=== PATIENT | female | born 1950 | race Caucasian/White ===

== ENCOUNTER 2020-08-26 01:08 | Emergency (ER) | payer MEDICARE, OTHER, SELFPAY ==
[2020-08-26] VITALS (13 sets, daily range): BP systolic 123–147; BP diastolic 58–76; PULSE 69–83; RESP 19–28; TEMP 36.5; O2SAT 94–98; BMI 31.9
--- NOTE | 2020-08-26 01:22 | DI.RAD.S_ITS ---
PROCEDURE: XR WRIST LT MIN 3V INDICATIONS: pain TECHNIQUE: 3 views of the wrist were acquired. COMPARISON: None. FINDINGS: Bones: Comminuted impacted distal radius fracture extending to the articular surface with mild displacement. Associated ulnar styloid avulsion. Base of thumb and triscaphe joint degenerative change. No suspicious bony lesions. Soft tissues: No suspicious soft tissue calcifications. IMPRESSION: 1. Impacted, comminuted fracture of the distal radius extending to articular surface. 2. Associated ulnar styloid avulsion. Comment: Final report is concordant with preliminary interpretation provided by [facility]. Dictated by: Hernan Maier M.D. on 08/26/2020 at 7:26 Approved by: Hernan Maier M.D. on 08/26/2020 at 7:27
--- NOTE | 2020-08-26 02:04 | ED.TRAUMA ---
HPI - Trauma General Chief Complaint: Extremity Injury, Upper Stated Complaint: Broke wrist Time Seen by Provider: 08/26/20 01:19 Source: patient and family Mode of arrival: Wheelchair Limitations: no limitations History of Present Illness HPI narrative: 70F Nonsmoker with noncontributory medical history presents with her in the chief complaint of a ground level fall and resultant left wrist injury. She states that she was getting out of bed and at baseline has some trouble with balance on occasion. She states she stumbled and reached out to stabilize herself and ended up falling onto an outstretched wrist. She now has pain with range of motion and improvement with rest. She denies any numbness, tingling or weakness. She denies any head, neck or back pain. She takes no blood thinners. She did have 2 drinks about 8:00 p.m. tonight. she was seen and evaluated by the medics on [place] and had a splint put on MD complaint: fall Onset (ago): minute(s) Loss of Consciousness: no Related Data Previous Rx's Medication Instructions Recorded hydrocodone-acetaminophen 1 tab PO Q4-6H PRN #20 tab 08/26/20 Allergies Allergy/AdvReac Type Severity Reaction Status Date / Time Sulfa (Sulfonamide AdvReac Verified 08/26/20 01:17 Antibiotics) Review of Systems Constitutional Constitutional: Denies chills, Denies fatigue, Denies fever(s), Denies frequent falls, Denies lethargy and Denies weakness Eyes Eyes: Denies change in vision, Denies eye discharge, Denies irritation and Denies loss of vision ENT Ears, Nose, Mouth, and Throat: Denies change in voice, Denies dizziness, Denies neck pain, Denies sore throat and Denies throat swelling Cardiovascular Cardiovascular: Denies chest pain, Denies irregular heart rhythm, Denies lightheadedness, Denies palpitations, Denies dyspnea, Denies dyspnea on exertion and Denies orthopnea Respiratory Respiratory: Denies cough, Denies dyspnea, Denies dyspnea on exertion and Denies wheezing Gastrointestinal Gastrointestinal: Denies abdominal pain, Denies change in bowel habits, Denies diarrhea, Denies nausea and Denies vomiting Musculoskeletal Musculoskeletal: Reports deformity, Reports arthralgias, Reports joint swelling, Denies neck pain and Denies numbness Integumentary/Breasts Skin/Breast: Denies pruritus, Denies erythema, Denies rash and Denies wounds Neurologic Neurologic: Denies behavioral changes, Denies confusion, Denies dizziness, Denies frequent falls, Denies loss of vision, Denies numbness and Denies weakness Psychiatric Psychiatric: Denies anxiety, Denies behavioral changes, Denies confusion, Denies depression, Denies homicidal ideation and Denies suicidal ideation Endocrine Endocrine: Denies fatigue, Denies flushing and Denies palpitations Hematologic/Lymphatic Hematologic/Lymphatic: Denies easy bruising Allergic/Immunologic Allergic/Immunologic: Denies urticaria, Denies throat swelling and Denies wheezing Patient History Social History Smoking Status: Never smoker Smoking Status: Never smoker alcohol intake frequency: 0-2 drinks per day Substance Use Type: does not use Exam Narrative Exam Narrative: GENERAL: [age] year old patient appears stated age. Well-developed patient, in mild distress. tearful HEAD: Atraumatic. Normocephalic. EYES: Pupils equal round and reactive. Extraocular motions intact. No scleral icterus. No injection or drainage. ENT: Nose without bleeding, purulent drainage. Throat without erythema, tonsillar hypertrophy or exudate. Airway patent. NECK: Trachea midline. Non tender CARDIOVASCULAR: Regular rate and rhythm without murmurs, gallops, or rubs. RESPIRATORY: Clear to auscultation. Breath sounds equal bilaterally. No wheezes, rales, or rhonchi. GASTROINTESTINAL: Abdomen soft, non-tender, nondistended. EXTREMITIES: decreased range of motion secondary to pain of left wrist with mild but obvious deformity. This is closed BACK: Nontender without deformity or crepitance. No flank tenderness. NEURO: AOx3. SKIN: No rash or erythema of visible areas Initial Vital Signs Initial Vital Signs: Vital Signs Temperature 97.7 F 08/26/20 01:17 Pulse Rate 78 08/26/20 01:17 Respiratory Rate 24 08/26/20 01:17 Blood Pressure 136/68 08/26/20 01:17 Pulse Oximetry 96 08/26/20 01:17 Procedures Orthopedic Fracture Reduction Fracture #1: Time Out Performed: Yes Side: left Fracture Reduction Location: radius Analgesia: procedural sedation Technique: direct manipulation and traction/counter-traction Post Reduction X-rays Demonstrate: anatomical reduction Post-reduction neuro exam: intact Post-reduction vascular exam: intact Splint Applied: Yes Patient Tolerated Procedure: Well Orthopedic Splinting/Casting Injury #1: Side: left Upper Extremity Injury Location: wrist Upper Extremity Immobilizer: sling/shoulder immobilizer and sugar tong splint Post splinting neuro exam: intact Post splinting vascular exam: intact Placed by: Nursing Procedural Sedation Consent signed: Yes Time out performed: Yes Indication: fracture/dislocation reduction ASA Class: I Mallampati Airway Classification: Class III Preparation: cardiac rehabilitation specialist applied, pulse oximeter, capnometry used, supplemental O2 applied and suction/airway equipment at bedside IV Propofol dose (mg): 80 Intraservice time/total sedation time (min): 10 ED Sedation Level: Moderate (Concious) Patient Tolerated Procedure: Well Complications: none Course Orders Ordered: ED Orders 08/26/20 01:22 XR wrist LT min 3V Stat 08/26/20 02:32 XR wrist LT min 3V Stat Discontinued Medications Hydrocodone Bitart/Acetaminophen (Hydrocodone/Acet 5/325 Prepack) 1 bottle MISC SEEINSTR ONE Stop: 08/26/20 01:46 Last Admin: 08/26/20 02:08 Dose: 1 bottle Documented by: [email or web address] Propofol (Propofol 200 Mg/20 Ml Vial) 95 mg 1 mg/kg (95 mg) IV NOW ONE Stop: 08/26/20 01:46 Last Admin: 08/26/20 02:13 Dose: 95 mg Documented by: [email or web address] Vital Signs Vital signs: Vital Signs - 8 hr 08/26/20 01:17 08/26/20 02:17 08/26/20 02:18 Temperature 97.7 F Pulse Rate 78 72 73 Respiratory Rate 24 22 21 Blood Pressure 136/68 147/66 H Pulse Oximetry 96 97 98 08/26/20 02:20 08/26/20 02:25 08/26/20 02:30 Temperature Pulse Rate 79 81 79 Respiratory Rate 21 21 24 Blood Pressure 141/67 H 141/73 H 145/72 H Pulse Oximetry 98 95 98 08/26/20 02:36 08/26/20 02:40 08/26/20 02:45 Temperature Pulse Rate 77 83 73 Respiratory Rate 28 H 24 20 Blood Pressure 123/58 L 129/61 134/68 Pulse Oximetry 98 95 94 08/26/20 02:50 08/26/20 02:55 08/26/20 03:00 Temperature Pulse Rate 71 69 71 Respiratory Rate 21 19 19 Blood Pressure 144/67 H 135/69 136/76 Pulse Oximetry 96 95 95 08/26/20 03:05 Temperature Pulse Rate 74 Respiratory Rate 20 Blood Pressure 136/76 Pulse Oximetry 95 MDM - Trauma Imaging Data Extremity x-ray #1: Attestation: I personally reviewed and interpreted this imaging study as follows: My Impression: left distal radius fracture with comminution, dorsal angulation and articular involvement Discharge Plan Departure Patient Disposition: Home Clinical Impression: Fracture of wrist Qualifiers: Encounter type: initial encounter Fracture type: closed Laterality: left Qualified Code(s): S62.102A - Fracture of unspecified carpal bone, left wrist, initial encounter for closed fracture Instructions: DI for Distal Radius Fracture Activity Restrictions/Additional Instructions: *You have been diagnosed with [Distal radius fracture ] *What to do: *Please continue to take your regular medications as directed. [x ] New medication prescriptions sent to your pharmacy: [ [facility]] [ ] New medication written as a paper prescription [ ] No new medications given *Please follow up with Dr. Lopez at [facility] in 2-3 days, call for an appointment. Let them know you were seen in the Emergency Department and that we ask that you be seen in follow up. We will electronically transmit a record of today's note *Return to Emergency Department if you should have any new, worsening or concerning symptoms, such as [fever greater than 101 F, shaking chills, worsening pain, persistent vomiting or other bothersome symptoms] Splint Care: Keep splint clean and dry. Elevated affected body part to decrease swelling. OK to use ice pack on the affected body part. Use for 15-20 minutes each time, for 5-6x per day. If you develop worsening pain, numbness, tingling, discoloration of the affected body part, loosen the splint by loosening the RADHA wrap, and either see your doctor for an urgent re-assessment, or return to the Emergency Department. Return to the Emergency Department for any new or worsening symptoms. Prescriptions: New hydrocodone-acetaminophen 5-325 mg tablet 1 tab PO Q4-6H PRN (Reason: pain) Qty: 20 RF: 0 Referrals: Cesar Lopez MD [Physician] -
[2020-08-26] MEDS: HYDROCODONE/ACET 5/325 PREPACK 1 BOTTLE MISC (02:08)
[2020-08-26] MEDS: propofoL 200 MG/20 ML VIAL 95 MG IV (02:13)
--- NOTE | 2020-08-26 02:32 | DI.RAD.S_ITS ---
PROCEDURE: XR WRIST LT 2V INDICATIONS: post reduction and splint TECHNIQUE: 3 views of the wrist were acquired. COMPARISON: [facility], CR, XR WRIST LT MIN 3V, 08/26/2020, 1:27. FINDINGS: Bones: Cast material somewhat obscures bony detail. No significant change in alignment of impacted, comminuted distal radius fracture extending to the articular surface with associated ulnar styloid avulsion. No suspicious bony lesions. Soft tissues: No suspicious soft tissue calcifications. IMPRESSION: No significant change in alignment. Comminuted distal radius fracture extending to articular surface, associated ulnar styloid avulsion. Comment: Final report is concordant with preliminary interpretation provided by [facility]. Dictated by: Hernan Maier M.D. on 08/26/2020 at 7:27 Approved by: Hernan Maier M.D. on 08/26/2020 at 7:29
== END 2020-08-26 03:30 | disposition home or self-care (01) ==
PROVIDERS: Emergency Provider Emergency Medicine
DX: S52.592A Other fractures of lower end of left radius, initial encounter for closed fracture (principal); W06.XXXA Fall from bed, initial encounter
CPT/HCPCS: 25605; 36415; 73110; 99152; 99284; 99285; J2704

== ENCOUNTER → 2020-08-28 13:23 | Outpatient (CLI) | payer MEDICARE, OTHER, SELFPAY ==
--- NOTE | 2020-08-28 | DI.CT.S_ITS ---
PROCEDURE: CT UE LT WO CON INDICATIONS: Colles' fracture of left radius, initial encounter TECHNIQUE: Noncontrast 1 mm axial sections acquired through the carpal bones, with coronal and sagittal reformats. COMPARISON: [facility], CR, XR WRIST LT 2V, 08/26/2020, 2:34. FINDINGS: Image quality: Limited by cast artifact. Bones: Comminuted intra-articular fracture of the distal radius is present, as seen by plain film. There is mild posterior angulation of the distal fragment. Soft tissues: Grossly unremarkable IMPRESSION: Distal radial fracture. Dictated by: Sarah Larkin M.D. on 08/28/2020 at 14:58 Approved by: Sarah Larkin M.D. on 08/28/2020 at 14:59
== END ==
PROVIDERS: Referring Provider Orthopaedic Surgery; Visit Provider Orthopaedic Surgery
DX: S52.532A Colles' fracture of left radius, initial encounter for closed fracture (principal); X58.XXXA Exposure to other specified factors, initial encounter
CPT/HCPCS: 73200

== ENCOUNTER 2020-09-25 08:42 | Emergency (ER) | payer MEDICARE, OTHER, SELFPAY ==
--- NOTE | 2020-09-25 09:07 | ED.ABDPAIN ---
HPI - Abdominal Pain General Chief Complaint: Abdominal Pain Stated Complaint: ACUTE RT LOWER ABDOMINAL PAIN Time Seen by Provider: 09/25/20 08:45 History of Present Illness HPI narrative: 70-year-old female nonsmoker with noncontributory medical history presents with her and a chief complaint of right lower quadrant pain that has been present, if not worsening since last night. She states it came on rather suddenly home at 2 or 3 in the afternoon and in her right lower quadrant. It is worse when she moves and improves with rest. She denies any change in appetite and has no nausea, vomiting or diarrhea. She denies constipation. She denies any urinary complaints such as dysuria, frequency or urgency. She has had no fever or chills. She had coffee this morning at about 6 or 7 but has been NPO to solid since last night. She denies any history of the same Related Data Previous Rx's Medication Instructions Recorded hydrocodone 5 mg-acetaminophen 325 1 tab PO Q4-6H PRN #20 tab 08/26/20 mg tablet ondansetron 4 mg disintegrating 4 mg PO TID-QID PRN #10 tab 09/25/20 tablet Allergies Allergy/AdvReac Type Severity Reaction Status Date / Time Sulfa (Sulfonamide AdvReac Verified 08/26/20 01:17 Antibiotics) Review of Systems Review of Systems Narrative: GENERAL: Denies chills, fatigue, malaise, fever, sweats. HEENT: Denies sinus pain, ear pain, sore throat, difficulty swallowing, dizziness. RESPIRATORY: Denies dyspnea, cough, wheezing, hemoptysis, sputum. CARDIOVASCULAR: Denies chest pain, palpitations, orthopnea, edema, GASTROINTESTINAL: See HPI : Denies dysuria, frequency, incontinence, hematuria, urinary retention. MUSCULOSKELETAL: denies weakness, joint pain, or bony pain SKIN: Denies rash, skin lesions, or other NEUROLOGIC: Denies weakness, headache, numbness, change in speech, confusion, seizures, incoordination. PSYCHIATRIC: No concerning psychosocial issues. 12 point review of systems is negative except for those stated above Patient History Social History Smoking Status: Never smoker Smoking Status: Never smoker alcohol intake frequency: 0-2 drinks per day Substance Use Type: does not use Exam Narrative Exam Narrative: GENERAL: [70] year old patient appears stated age. Well-developed patient, in mild distress. HEAD: Atraumatic. Normocephalic. EYES: Pupils equal round and reactive. Extraocular motions intact. No scleral icterus. No injection or drainage. ENT: Nose without bleeding, purulent drainage. Throat without erythema, tonsillar hypertrophy or exudate. Airway patent. NECK: Trachea midline. Non tender CARDIOVASCULAR: Regular rate and rhythm without murmurs, gallops, or rubs. RESPIRATORY: Clear to auscultation. Breath sounds equal bilaterally. No wheezes, rales, or rhonchi. GASTROINTESTINAL: Abdomen soft, tenderness in the right lower quadrant with localized peritonitis, bowel sounds present in all 4 quadrants. Negative Rovsing's. Negative heel tap, mild worsening of pain with psoas EXTREMITIES: No edema or joint tenderness. BACK: Nontender without deformity or crepitance. No flank tenderness. NEURO: AOx3. SKIN: No rash or erythema of visible areas Initial Vital Signs Initial Vital Signs: Vital Signs Temperature 98.0 F 09/25/20 09:11 Pulse Rate 88 09/25/20 09:11 Respiratory Rate 18 09/25/20 09:11 Blood Pressure 184/90 H 09/25/20 09:11 Pulse Oximetry 98 09/25/20 09:11 Course Orders Ordered: Discontinued Medications Sodium Chloride (Normal Saline 0.9%) 1,000 mls @ 150 mls/hr IV CONT WENDY Last Infusion: 09/25/20 15:19 Dose: 0 mls/hr Documented by: Admin: 09/25/20 11:24 Dose: 150 mls/hr Documented by: BTONER Vital Signs Vital signs: Vital Signs - 8 hr 09/25/20 09:11 09/25/20 11:47 Temperature 98.0 F Pulse Rate 88 83 Respiratory Rate 18 Blood Pressure 184/90 H 199/89 H Pulse Oximetry 98 98 MDM - Abdominal Pain Lab Data Result diagrams: 09/25/20 10:30 09/25/20 10:30 Labs: Lab Results 09/25/20 09/25/20 Range/Units 10:30 10:30 WBC 4.2 L (4.5-11.0) X10^3/uL RBC 4.32 (4.0-5.2) X10^6/uL Hgb 13.0 (12.0-16.0) g/dL Hct 39.2 (36-46) % MCV 90.7 (80-100) fL MCH 30.0 (26-34) PG MCHC 33.1 (30-36) % RDW 13.4 (11.6-14.8) % Plt Count 160 (150-400) X10^3/uL Neut % (Auto) 46.7 L (50-75) % Lymph % (Auto) 39.2 (25-40) % [place] % (Auto) 9.3 (3-14) % Eos % (Auto) 4.0 (2-4) % Baso % (Auto) 0.8 (0-2) % Neut # (Auto) 2000 (0215-7600) /uL Lymph # (Auto) 1600 (9623-2971) /uL [place] # (Auto) 400 (0-900) /uL Eos # (Auto) 200 (0-450) /uL Baso # (Auto) 0 (0-100) /uL Sodium 137 (137-145) mmol/L Potassium 4.7 (3.4-5.1) mmol/L Chloride 105 (98-107) mmol/L Carbon Dioxide 28 (22-32) mmol/L BUN 10 (7-17) mg/dL Creatinine 0.64 (0.52-1.04) mg/dL Estimated GFR > 60.0 (>60) mL/min BUN/Creatinine Ratio 15.6 (6-22) Glucose 115 H (80-110) mg/dL Calcium 9.4 (8.4-10.2) mg/dL Total Bilirubin 0.4 (0.2-1.3) mg/dL AST 68 H (14-36) IU/L ALT 92 H (<35) IU/L Alkaline Phosphatase 85 (38-126) U/L Total Protein 6.3 (6.3-8.2) g/dL Albumin 3.8 (3.5-5.0) g/dL Globulin 2.5 (1.7-4.1) g/dL Albumin/Globulin Ratio 1.5 (1.0-2.8) Lipase 60 (23-300) U/L Point of care testing: Urine Dip Bedside Urine Glucose Negative Bedside Urine Bilirubin - Negative Bedside Urine Ketone - Negative Urine Specific [place] 1.020 Bedside Urine Occult Blood - Negative Bedside Urine pH 6.0 Bedside Urine Protein - Negative Bedside Urine Urobilinogen - Negative Bedside Urine Nitrite - Negative Bedside Urine Leukocytes - Negative Esterase MDM Narrative Medical decision making narrative: Multiple etiologies for patient's symptoms considered including: [Appendicitis versus ovarian problem versus kidney stone versus bowel obstruction versus other] Patient's symptoms improved over duration of stay with above-stated therapies. Pain is well controlled, tolerating orals Findings and discharge diagnosis discussed with patient/family followed by verbalization of understanding Return precautions discussed with patient/family whom verbalize understanding. Discharge Plan Departure Patient Disposition: Home Clinical Impression: Abdominal pain, acute, right lower quadrant Instructions: DI for Abdominal Pain-Adult Activity Restrictions/Additional Instructions: *You have been diagnosed with [right lower quadrant pain without evidence of appendicitis, kidney stone, ovarian problem or other diagnosis requiring immediate intervention. As we discussed this could be early appendicitis and close follow-up in the next 12-24 hours is very important.] *What to do: *Please continue to take your regular medications as directed. [x ] New medication prescriptions sent to your pharmacy: [[facility]] [ ] New medication written as a paper prescription [ ] No new medications given *Please consume only clear liquids for the next 24 hours. *Return to Emergency Department if you should have any new, worsening or concerning symptoms, such as [fever greater than 101 F, shaking chills, worsening pain, persistent vomiting or other bothersome symptoms] Prescriptions: New ondansetron 4 mg tablet,disintegrating 4 mg PO TID-QID PRN (Reason: nausea and vomiting) Qty: 10 RF: 0 No Action hydrocodone-acetaminophen 5-325 mg tablet 1 tab PO Q4-6H PRN (Reason: pain) Qty: 20 RF: 0 Referrals: Tiera Kelley MD [Primary Care Provider] -
[2020-09-25 09:11] VITALS: BP 184/90; PULSE 88; RESP 18; TEMP 36.7; O2SAT 98; BMI 33.4
[2020-09-25 10:42] LABS: Add Manual Diff / Slide Review NO; Basophils Absolute Auto 0 /uL (0-100); Basophils Percent Auto 0.8 % (0-2); Eosinophils Absolute Auto 200 /uL (0-450); Hematocrit 39.2 % (36-46); Lymphocytes Absolute Auto 1600 /uL (1100-4500); Lymphocytes Percent Auto 39.2 % (25-40); Mean Corpuscular HGB Conc 33.1 % (30-36); Mean Corpuscular Volume 90.7 fL (80-100); Monocytes Absolute Auto 400 /uL (0-900); Monocytes Percent Auto 9.3 % (3-14); Neutrophils Absolute Auto 2000 /uL (1500-7000); Neutrophils Percent Auto 46.7 % (50-75); Platelet Count 160 X10^3/uL (150-400); Red Blood Cell Count 4.32 X10^6/uL (4.0-5.2); Red Cell Distribution Width 13.4 % (11.6-14.8); White Blood Cell Count 4.2 X10^3/uL (4.5-11.0)
[2020-09-25 10:53] LABS: Alanine Aminotransferase 92 IU/L (<35); Albumin 3.8 g/dL (3.5-5.0); Albumin Globulin Ratio 1.5 (1.0-2.8); Alkaline Phosphatase 85 U/L (38-126); Aspartate Aminotransferase 68 IU/L (14-36); BUN Creatinine Ratio 15.6 (6-22); Bilirubin Total 0.4 mg/dL (0.2-1.3); Blood Urea Nitrogen 10 mg/dL (7-17); Calcium 9.4 mg/dL (8.4-10.2); Carbon Dioxide 28 mmol/L (22-32); Chloride 105 mmol/L (98-107); Estimated Glomerular Filt Rate > 60.0 mL/min (>60); Globulin 2.5 g/dL (1.7-4.1); Glucose 115 mg/dL (80-110); HEMOLYSIS < 15 (0-50); Lipase 60 U/L (23-300); Potassium 4.7 mmol/L (3.4-5.1); Sodium 137 mmol/L (137-145); Total Protein 6.3 g/dL (6.3-8.2)
[2020-09-25] MEDS: SODIUM CHLORIDE 0.9% 1,000 ML 150 ML IV (11:24)
--- NOTE | 2020-09-25 11:39 | DI.CT.S_ITS ---
PROCEDURE: CT ABDOMEN PELVIS W CON INDICATIONS: severe RLQ pain TECHNIQUE: After the administration of intravenous contrast, axial sections acquired from the lung bases to the pubic symphysis. Coronal and sagittal reformats were performed. For radiation dose reduction, the following was used: automated exposure control, adjustment of mA and/or kV according to patient size. COMPARISON: None. FINDINGS: Image quality: Excellent. Lung bases: Unremarkable. There is a small hiatal hernia. Heart: Heart size is normal. There is mild coronary artery calcification. ABDOMEN: Liver: Liver is normal in size. Severe hepatic steatosis. Gallbladder: Unremarkable. Biliary ducts: Unremarkable. Pancreas: Unremarkable. Spleen: Unremarkable. Adrenal Glands: Unremarkable. Kidneys and Ureters: Unremarkable. Stomach and Bowel: Stomach, small bowel loops, and colon are normal in caliber. Appendix is mildly enlarged measuring 8 mm. There is no appendiceal stranding. No periappendiceal fluid collection. Cecum and terminal ileum are grossly normal. There are scattered colonic diverticula. No CT findings to suggest acute diverticulitis. Peritoneum: No abnormal intraperitoneal fluid. No free air. Ventral Wall: No hernias. Abdominal Nodes: No retroperitoneal or mesenteric adenopathy by size criteria. Vessels: Aorta and inferior vena cava are normal in size. PELVIS: Pelvic Organs: Uterus is absent. Ovaries are grossly normal. No free fluid in pelvis. Bladder: Unremarkable. Pelvic Nodes: No enlarged lymph nodes. Miscellaneous: No hernias are seen. Bones: Degenerative changes are noted in lumbar spine. Mild anterior wedge deformity of T12. IMPRESSION: 1. The appendix appears slightly enlarged without periappendiceal stranding. Early acute appendicitis cannot be excluded. 2. Diverticulosis without diverticulitis. 3. Hepatic steatosis. The result was discussed with Dr. Balderas. Dictated by: Fox Mcallister M.D. on 09/25/2020 at 12:28 Approved by: Fox Mcallister M.D. on 09/25/2020 at 12:39
[2020-09-25 11:47] VITALS: BP 199/89; PULSE 83; O2SAT 98
--- NOTE | 2020-09-25 13:34 | DI.US.S_ITS ---
PROCEDURE: US PELVIC COMPLETE INDICATIONS: severe RLQ pain, ovary vs. early appendicitis TECHNIQUE: Real-time scanning was performed of the pelvic organs, with image documentation. Additional endovaginal scanning was necessary due to incomplete visualization of the adnexal and endometrial structures by transabdominal scanning. COMPARISON: None. FINDINGS: Uterus: Surgically absent Ovaries: Neither of the ovaries are sonographically identified. Technically difficult examination due to body habitus. No gross adnexal mass is seen. Other: No pathologic free abdominal or pelvic fluid. The appendix is not sonographically visualized. IMPRESSION: Ovaries not sonographically visualized. Status post hysterectomy. Dictated by: Mesfin Grijalva M.D. on 09/25/2020 at 15:58 Approved by: Mesfin Grijalva M.D. on 09/25/2020 at 15:59
== END 2020-09-25 15:20 | disposition home or self-care (01) ==
PROVIDERS: Emergency Provider Emergency Medicine; PCP Family Medicine
DX: R10.31 Right lower quadrant pain (principal)
CPT/HCPCS: 36415; 74177; 76830; 76856; 80053; 81003; 83690; 85025; 96360; 96361; 99284

== ENCOUNTER → 2021-04-08 09:33 | Outpatient (CLI) | payer MEDICARE, OTHER, SELFPAY ==
[2021-04-08 11:40] LABS: COVID19 -Nasal RAPID Negative (Negative)
== END ==
PROVIDERS: PCP Family Medicine; Visit Provider Family Medicine Sleep Medicine
DX: Z20.822 Contact with and (suspected) exposure to COVID-19 (principal)
CPT/HCPCS: 87635; C9803

== ENCOUNTER 2021-04-09 06:42 | Day surgery (SDC) | payer MEDICARE, OTHER, SELFPAY ==
[2021-04-09] MEDS: PROPARACAINE 0.5% OPHTH SOL 2 DROPS EYE-OP (07:16)
[2021-04-09] MEDS: CATARACT EYE COMPOUND (10 DROPS/SYRINGE) 3 DROPS EYE-OP (07:17)
[2021-04-09 07:18] VITALS: BP 153/84; PULSE 78; RESP 18; TEMP 36.6; O2SAT 96; BMI 36.0
--- NOTE | 2021-04-09 08:46 | PM.PREOP ---
Pre-operative Note Interval Note History & Physical reviewed/Exam performed by Physician: Yes Changes to H&P: No Addendum Addendum Note: There are no non surgical alternatives to cataract surgery. Deterioration of the patient's condition is expected. Delay may result in more complex future surgery.
--- NOTE | 2021-04-09 08:48 | P.OP_ITS ---
Operative Date/Time/Diagnoses Pre-op diagnosis: Nuclear cataract right eye Procedure & Clinicians Procedure: Cataract Surgery Same procedure as scheduled: Yes Surgeon: Cesar Tovar Anesthesia Type: MAC +/- and Sedation Operative Notes Procedure in detail: Patient brought to the operating suite. Tetracaine drops placed in the right eye. Marking instrument was used to cesario the vertical and horizontal meridians. Patient was prepped and draped in sterile manner. Wire lid speculum was placed in the eye. Marking instrument was used to cesario the 40 degree meridian. Betadine drops were placed on the eye. This was irrigated. Lidocaine jelly was placed on the eye. A paracentesis port was created with a side-port blade. 0.1 mL 1% preservative free lidocaine was injected into the anterior chamber. The anterior chamber was deepened with viscoelastic. 2.6 mm keratome was used to create a temporal clear corneal incision. Cystotome and Utrata forceps were used to create continuous tear capsulorrhexis. Balanced salt solution was used to hydro dissect the nucleus. The phacoemulsification handpiece was inserted and the nucleus was removed using the stop and chop technique. The irrigation aspiration handpiece was inserted and the remaining cortex was removed. Anterior chamber was deepened with viscoelastic. An Walker [id number] intraocular lens with a power of 20.0 was injected into the capsular bag. Irrigation aspiration handpiece was inserted and the remaining viscoelastic was removed. The lens was rotated to the 40 degree meridian. Incision was hydrated with balanced salt solution and found to be leak free with pressure with Weck-Nina sponges. 0.1 mL Vigamox injected anterior chamber. 0.3 mL Kenalog 10 mg was injected subconju nctivally. Lid speculum was removed. The patient left the operating room in excellent condition. Complications: none Post-operative Condition: stable Disposition: same day surgery
[2021-04-09] MEDS: TRIAMCINOLONE 50 MG/5 ML VIAL INJ (09:01)
[2021-04-09] MEDS: MOXIFLOXACIN INJ 4 MG/0.8 ML VIAL 0.5 MG EYE-OP (09:01)
[2021-04-09] MEDS: PHENYLEPHRINE/LIDOCAINE VIAL (OR) 0.2 ML EYE-OP (09:01)
[2021-04-09] MEDS: HYALURONATE SODIUM 30 MG-10 MG/ML SYRINGES 1 BOX INTRAOCULA (09:01)
[2021-04-09] MEDS: LIDOCAINE 2% (GLYDO) 6 ML GEL TOP (09:02)
[2021-04-09] MEDS: TETRACAINE 0.5% OPHTH DROPS 4 ML 2 DROPS EYE-OP (09:02)
[2021-04-09] MEDS: BALANCED SALT IRRIG SOLN NO.2 500 ML, EPINEPHrine 1 MG IRR (09:02)
[2021-04-09 09:17] VITALS: BP 122/72; PULSE 72; RESP 16; TEMP 36.6; O2SAT 98
== END 2021-04-09 09:40 | disposition home or self-care (01) ==
PROVIDERS: PCP Family Medicine; Referring Provider Ophthalmology; Visit Provider Ophthalmology
PROC: (CPT 66984; principal; 2021-04-09 08:45)
DX: H25.11 Age-related nuclear cataract, right eye (principal); F41.9 Anxiety disorder, unspecified
CPT/HCPCS: 66984; J0171; J2250; J3301; V2787

== ENCOUNTER → 2021-04-22 14:32 | Outpatient (CLI) | payer MEDICARE, OTHER, SELFPAY ==
[2021-04-22 16:07] LABS: COVID19 -Nasal RAPID Negative (Negative)
== END ==
PROVIDERS: PCP Family Medicine; Visit Provider Family Medicine Sleep Medicine
DX: Z20.822 Contact with and (suspected) exposure to COVID-19 (principal)
CPT/HCPCS: 87635; C9803

== ENCOUNTER 2021-04-23 06:22 | Day surgery (SDC) | payer MEDICARE, OTHER, SELFPAY ==
[2021-04-23 07:13] VITALS: BP 156/93; PULSE 82; RESP 16; TEMP 36.2; O2SAT 100
[2021-04-23 07:15] VITALS: BMI 34.9
[2021-04-23] MEDS: PROPARACAINE 0.5% OPHTH SOL 2 DROPS EYE-OP (07:35)
[2021-04-23] MEDS: CATARACT EYE COMPOUND (10 DROPS/SYRINGE) 3 DROPS EYE-OP (07:50)
--- NOTE | 2021-04-23 07:53 | SUR.PREOP ---
Dr Tovar here and inserted 1st eye drops -delay with pharmacy eye meds this am.
--- NOTE | 2021-04-23 08:40 | P.OP_ITS ---
Operative Date/Time/Diagnoses Pre-op diagnosis: Nuclear Cataract Left eye Post-op diagnosis: same Procedure & Clinicians Same procedure as scheduled: Yes Surgeon: Cesar Tovar Anesthesia Type: MAC +/- and Sedation Operative Notes Procedure in detail: Patient brought to the operating suite. Tetracaine drops placed in the left eye. Marking instrument was used to cesario the vertical and horizontal meridians. Patient was prepped and draped in sterile manner. Wire lid speculum was placed in the eye. Betadine drops were placed on the eye. This was irrigated. Lid ocaine jelly was placed on the eye. A paracentesis port was created with a side- port blade. 0.1 mL 1% preservative free lidocaine was injected into the anterior chamber. The anterior chamber was deepened with viscoelastic. 2.6 mm keratome was used to create a temporal clear corneal incision. Cystotome and Utrata forceps were used to create continuous tear capsulorrhexis. Balanced salt solution was used to hydro dissect the nucleus. The phacoemulsification handpiece was inserted and the nucleus was removed using the stop and chop technique. The irrigation aspiration handpiece was inserted and the remaining cortex was removed. Anterior chamber was deepened with viscoelastic. An Walker [id number] intraocular lens with a power of 19.0 was injected into the capsular bag. Irrigation aspiration handpiece was inserted and the remaining viscoelastic was removed. The lens was rotated to the 90 degree meridian. Incision was hydrated with balanced salt solution and found to be leak free with pressure with Weck- Nina sponges. 0.1 mL Vigamox injected anterior chamber. 0.3 mL Kenalog 10 mg was injected subconjunctivally. Lid speculum was removed. The patient left the operating room in excellent condition. Complications: none Post-operative Condition: stable Disposition: same day surgery
--- NOTE | 2021-04-23 08:40 | PM.PREOP ---
Pre-operative Note Interval Note History & Physical reviewed/Exam performed by Physician: Yes Changes to H&P: No
[2021-04-23] MEDS: HYALURONATE SODIUM 30 MG-10 MG/ML SYRINGES 1 BOX INTRAOCULA (08:49)
[2021-04-23] MEDS: MOXIFLOXACIN INJ 4 MG/0.8 ML VIAL 0.5 MG EYE-OP (08:49)
[2021-04-23] MEDS: LIDOCAINE 2% (GLYDO) 6 ML GEL TOP (08:50)
[2021-04-23] MEDS: TRIAMCINOLONE 50 MG/5 ML VIAL INJ (08:50)
[2021-04-23] MEDS: BALANCED SALT IRRIG SOLN NO.2 500 ML, EPINEPHrine 1 MG IRR (08:50)
[2021-04-23] MEDS: PHENYLEPHRINE/LIDOCAINE VIAL (OR) 0.2 ML EYE-OP (08:50)
[2021-04-23] MEDS: TETRACAINE 0.5% OPHTH DROPS 4 ML 2 DROPS EYE-OP (08:50)
[2021-04-23 09:11] VITALS: BP 151/86; PULSE 70; RESP 18; TEMP 36.6; O2SAT 100
--- NOTE | 2021-04-23 09:26 | SUR.PHASEII ---
preop-= prior rt eye surgery-still with some redness-Dr Tovar seen on preop visit and acknowledged.
== END 2021-04-23 09:25 | disposition home or self-care (01) ==
PROVIDERS: PCP Family Medicine; Referring Provider Ophthalmology; Visit Provider Ophthalmology
PROC: (CPT 66984; principal; 2021-04-23 08:45)
DX: H25.12 Age-related nuclear cataract, left eye (principal); F41.9 Anxiety disorder, unspecified
CPT/HCPCS: 66984; J0171; J2250; J3301; V2787

== ENCOUNTER → 2022-09-11 09:30 | Outpatient (CLI) | payer MEDICARE, SELFPAY ==
[2022-09-11 12:26] LABS: Alanine Aminotransferase 43 IU/L (<35); Albumin Globulin Ratio 1.8 (1.0-2.8); Alkaline Phosphatase 64 U/L (38-126); Aspartate Aminotransferase 34 IU/L (14-36); BUN Creatinine Ratio 13.7 (6-22); Bilirubin Total 0.4 mg/dL (0.2-1.3); Blood Urea Nitrogen 10 mg/dL (7-17); Calcium 9.8 mg/dL (8.4-10.2); Carbon Dioxide 29 mmol/L (22-32); Chloride 100 mmol/L (98-107); Estimated Glomerular Filt Rate > 60 mL/min (>60); Globulin 2.2 g/dL (1.7-4.1); Glucose 107 mg/dL (80-110); HEMOLYSIS < 15 (0-50); Potassium 4.9 mmol/L (3.4-5.1); Sodium 136 mmol/L (137-145); Total Protein 6.2 g/dL (6.3-8.2)
== END ==
PROVIDERS: PCP Student in an Organized Health Care Education/Training Program; Referring Provider Student in an Organized Health Care Education/Training Program; Visit Provider Student in an Organized Health Care Education/Training Program
DX: R79.89 Other specified abnormal findings of blood chemistry (principal)
CPT/HCPCS: 36415; 80053

== ENCOUNTER → 2023-07-25 17:01 | Outpatient (CLI) | payer MEDICARE, SELFPAY | PROVIDERS: PCP Student in an Organized Health Care Education/Training Program; Visit Provider Registered Nurse | DX: R31.9 Hematuria, unspecified (principal) | CPT/HCPCS: 87086 ==

== ENCOUNTER 2023-07-25 17:22 | Emergency (ER) | payer MEDICARE, SELFPAY ==
[2023-07-25 17:28] VITALS: BP 174/82; PULSE 100; RESP 16; TEMP 36.8; O2SAT 100; BMI 32.3
[2023-07-25 18:17] VITALS: PULSE 93; O2SAT 96
--- NOTE | 2023-07-25 18:31 | ED.FEMALEGU ---
HPI - Female Genitourinary General Chief complaint: Urogenital-Female Stated complaint: sent by [facility]/pelvic pain/lt low back pain Time Seen by Provider: 07/25/23 18:19 Source: patient Mode of arrival: Ambulatory Limitations: no limitations History of Present Illness HPI Narrative: This is a 72-year-old with history of dyslipidemia, urinary issues following with urology who was started on Gemtaza a in the last couple of months. She had been doing well but was noted to have some mild urinary retention when she saw her urologist 1 or 2 weeks ago. In the past week she has had increased lower abdominal pain bilaterally and a little bit of left flank pain. She has had increasing sensation of urinary retention which became quite severe couple days ago she was able to finally urinate. She stopped the medication on Thursday. She feels like the retention has been slowly improving but is still present. She denies dysuria. She has not had any fevers but has felt warm. Denies any nausea or vomiting, no black or bloody stools but has had diarrhea which is new. Patient states she has had a prior hysterectomy but no other abdominal surgeries. Home medications are a statin, phentermine once weekly and Gemtaza. Patient was told by her physician to go into the walk-in clinic. She had a urine sample that was done does not show any signs of infection but patient states her urine does not usually show any changes on the urinalysis but we will on culture. She states she is typically positive for Proteus mirabilis. She states she has an allergy to sulfa. Former smoker, drinks 2 alcoholic drinks daily, no recreational drugs. Dr. Kaleigh Lowe is her primary care provider. She is following with Urology in [place]. Related Data Home Medications Medication Instructions Recorded Confirmed rosuvastatin 20 mg tablet 20 mg PO DAILY 04/09/21 07/25/23 estradiol 0.01% (0.1 mg/gram) vaginal 07/25/23 07/25/23 vaginal cream fluorouracil 5 % topical cream applic topical BID PRN 07/25/23 07/25/23 phentermine 37.5 mg tablet 37.5 mg PO QAM 07/25/23 07/25/23 phentermine 8 mg tablet (Lomaira) mg PO 07/25/23 07/25/23 vibegron 75 mg tablet (Gemtesa) 75 mg PO DAILY 07/25/23 07/25/23 Allergies Allergy/AdvReac Type Severity Reaction Status Date / Time Sulfa (Sulfonamide AdvReac Unknown Verified 07/25/23 16:57 Antibiotics) Review of Systems Review of Systems ROS Unobtainable: All systems reviewed & are unremarkable except as noted in HPI and below Patient History alcohol intake frequency: 0-2 drinks per day Substance Use Type: does not use Exam Narrative Exam Narrative: GENERAL: Alert and oriented x three, well-appearing female in mild distress HEENT: Head normocephalic, atraumatic, EOMI, pupils reactive, face symmetric, moist mucous membranes NECK: Supple, full range of motion CARDIOVASCULAR: Regular rate and rhythm without murmurs, rubs or gallops. RESPIRATORY: Breath sounds equal bilaterally, no wheezes rales or rhonchi. ABDOMEN: Soft, nontender examination. Nondistended. Normoactive bowel sounds all 4 quadrants. No guarding or rebound, rigidity, no mass : No CVA tenderness EXTREMITIES: Normal range of motion, no clubbing or edema. Neurovascularly intact NEUROLOGICAL: Cranial nerves II through XII grossly intact. Moving all extremities SKIN: Warm, dry, no petechiae, no rashes or lesions. Initial Vital Signs Initial Vital Signs: Vital Signs Temperature 98.2 F 07/25/23 17:28 Pulse Rate 100 H 07/25/23 17:28 Respiratory Rate 16 07/25/23 17:28 Blood Pressure 174/82 H 07/25/23 17:28 Pulse Oximetry 100 07/25/23 17:28 Oxygen Delivery Method Room Air 07/25/23 17:28 Course Orders Ordered: ED Orders 07/25/23 18:44 Urine Culture Stat Vital Signs Vital signs: Vital Signs - 8 hr 07/25/23 17:28 Temperature 98.2 F Pulse Rate 100 H Respiratory Rate 16 Blood Pressure 174/82 H Pulse Oximetry 100 Oxygen Delivery Method Room Air MDM - Female Genitourinary MDM Narrative Medical decision making narrative: Patient had bladder scan than department which showed 225 mL. She then urinated, postvoid bladder scan shows 10-30mL Urine is negative for nitrates, leuks. Patient states it typically is so was sent for culture. She states her symptoms are different than prior UTI she usually has dysuria. Discussed with patient I think a lot of her symptoms are related to her medication. She feels comfortable continuing to hold her medication and following up with her urologist she has already been in touch with them through [employer] with plan to see them hopefully this upcoming week. Discussed return precautions all questions answered. Discharge Plan Departure Patient Disposition: Home Clinical Impression: Medication reaction Activity Restrictions/Additional Instructions: Your symptoms do seem very consistent with reaction to your Gemtasa. Please continue to hold your medication and talk with your urologist about what other options would be good for you. You do have a urine culture pending. Typically takes 48-72 hours to result if positive you should be contacted. If you develop sensation of urinary retention fevers new abdominal back or flank pain, vomiting, worsening diarrhea, black or bloody stools or any other new or concerning changes please return. Prescriptions: No Action Gemtesa 75 mg tablet 75 mg PO DAILY estradiol 0.01 % (0.1 mg/gram) cream vaginal phentermine 37.5 mg tablet 37.5 mg PO QAM Lomaira 8 mg tablet PO fluorouracil 5 % cream topical BID PRN rosuvastatin 20 mg tablet 20 mg PO DAILY Patient Comments: TAKE ONE TABLET BY MOUTH ONE TIME DAILY Referrals: Kaleigh Lowe PA-C [Primary Care Provider] - Stand Alone Forms: Patient Portal/API
[2023-07-25 19:00] VITALS: BP 174/82; PULSE 96; O2SAT 100
== END 2023-07-25 19:00 | disposition home or self-care (01) ==
PROVIDERS: Emergency Provider Emergency Medicine; PCP Student in an Organized Health Care Education/Training Program
DX: R33.9 Retention of urine, unspecified (principal); R10.30 Lower abdominal pain, unspecified; T50.995A Adverse effect of other drugs, medicaments and biological substances, initial encounter; R31.9 Hematuria, unspecified
CPT/HCPCS: 51798; 87086; 99282; 99283